=== PATIENT | female | born 1965 | race Asian ===

== ENCOUNTER 2017-03-13 22:08 | Emergency (ER) | payer OTHER ==
--- NOTE | 2017-03-14 00:11 | ED Physician Documentation ---
PD HPI HEAD INJURY - Stated complaint Stated Complaint: GLF/FACE INJURY - Chief complaint Chief Complaint: Trauma Hd/Nk - History obtained from History obtained from: Patient - History of Present Illness Mechanism of head injury: Fell Where head injury occurred: A house / apartment Timing - onset: Enter time (22:00), Today Pain level now: 4 Location of injury: Front Quality of pain: Pain Associated symptoms: No: LOC, AMS, Nausea / vomiting, Neck pain Contributing factors: No: Anticoagulated, Intoxicated Similar symptoms before: Has not had sx before Recently seen: Not recently seen - Additional information Additional information: patient tripped while walking down outdoor stairs at friend's house, 10PM tonight. C/O facial pain, and pain right hand and left knee. she is able to bear weight. Review of Systems Eyes: reports: Reviewed and negative Ears: reports: Reviewed and negative Nose: denies: Rhinorrhea / runny nose, Congestion, Epistaxis, Sinus pressure / pain Throat: denies: Dental pain / toothache Cardiac: reports: Reviewed and negative Respiratory: reports: Reviewed and negative Skin: reports: Abrasion (s) Musculoskeletal: reports: Joint pain, Joint swelling. denies: Neck pain, Back pain Neurologic: reports: Head injury. denies: Focal weakness, Numbness, Headache, LOC PD PAST MEDICAL HISTORY - Past Medical History Past Medical History: No - Present Medications Home Medications: Ambulatory Orders Medication Instructions Recorded Confirmed HYDROcod/ACETAM 5/325 [Imperial 5/325] 1 - 2 ea PO Q6H PRN #15 tablet 03/14/17 - Living Situation Living Arrangement: reports: At home - Social History Does the pt smoke?: No Smoking Status: Never smoker PD ED PE NORMAL - Vitals Vital signs reviewed: Yes - General General: Alert and oriented X 3, No acute distress, Well developed/nourished - HEENT HEENT: PERRL, EOMI, Moist mucous membranes, Pharynx benign, Dentition benign - Neck Neck: No bony TTP - Cardiac Cardiac: RRR, No murmur - Neuro Neuro: Alert and oriented X 3, house calls nurse 2-12 intact, No motor deficit, No sensory deficit, Normal speech PD ED PE EXPANDED - HEENT HEENT Visual: 1 - abrasion 2 - laceration 3 - bruising, swelling, tenderness 4 - abrasion, swelling, tenderness - Extremities Extremities: Tenderness (tenderness and swelling left knee; tenderness is directly over patella), Other (scattered superficial abrasions to dorsum of right hand with tenderness and swelling of 2nd MCP joint) Results - Vitals Vitals: Vital Signs - 24 hr 03/13/17 03/14/17 03/14/17 22:12 02:20 02:44 Temperature 36.6 C 36.7 C Heart Rate 89 79 78 Respiratory 20 19 16 Rate Blood Pressure 167/85 H 125/78 123/70 O2 Saturation 100 98 100 Oxygen O2 Source Room air - Rads (name of study) left knee xrays Radiology: Prelim report reviewed, See rad report right hand xrays Radiology: Prelim report reviewed, See rad report CT facial bones Radiology: Prelim report reviewed, See rad report Procedures - Laceration (location) Face Length in cm: 1 (from right nare to lip (right side of philtrum)) Wound type: Linear Neurovascular status: Sensory intact, Motor intact, Vascular intact Anesthesia: Lidocaine 1% Wound Preparation: Chlorhexadine Skin layer closure: Dermabond Other: Patient tolerated well, No complications, Neurovascular intact, Tetanus booster given Complexity: Simple PD MEDICAL DECISION MAKING - ED course Complexity details: reviewed results, re-evaluated patient, considered differential, d/w patient Departure - Departure Disposition: 01 Home, Self Care Clinical Impression: Facial abrasion, Multiple contusions, Left knee sprain, Nasal fracture Condition: Good Instructions: ED Fx Nasal Conf W X Ray, ED Sprain Knee, ED Laceration Facial Skin Glue Follow-Up: Cliff Stern MD [Primary Care Provider] - (3-4 days for wound check) Prescriptions: HYDROcod/ACETAM 5/325 [Imperial 5/325] 1 - 2 ea PO Q6H PRN #15 tablet PRN Reason: Pain Forms: Activity restrictions Discharge Date/Time: 03/14/17 02:44
[2017-03-14] MEDS ORDERED: TETANUS/DIPHTHERIA/PERTUSSIS 0.5 ML SYRINGE IM ONE ×2 (00:28→01:01)
[2017-03-14] MEDS ORDERED: HYDROcod/ACETAM 5/325 MG TABLET PO STA (00:29)
[2017-03-14] MEDS ORDERED: HYDROcod/ACETAM 5/325 MG TABLET ONE (01:00)
--- NOTE | 2017-03-14 01:24 | XRAY Preliminary Report ---
Exam: XR Knee 3 View LT IMPRESSION: Normal knee radiography. [facility] SITE ID: [id number]
--- NOTE | 2017-03-14 01:26 | XRAY Report ---
EXAM: LEFT KNEE RADIOGRAPHY EXAM DATE: 03/14/2017 01:12 AM. CLINICAL HISTORY: Fall, injury. COMPARISON: None. TECHNIQUE: 4 views. FINDINGS: Bones: Normal. No fractures or bone lesions. Joints: Normal. No effusion. No subluxations. Soft Tissues: Normal. No soft tissue swelling. IMPRESSION: Normal knee radiography. [facility] Referring Provider Line: [phone] SITE ID: [id number]
--- NOTE | 2017-03-14 01:29 | XRAY Preliminary Report ---
Exam: XR Hand 3 View RT IMPRESSION: No fracture or dislocation. [facility] SITE ID: [id number]
--- NOTE | 2017-03-14 01:32 | XRAY Report ---
EXAM: RIGHT HAND RADIOGRAPHY EXAM DATE: 03/14/2017 01:12 AM. CLINICAL HISTORY: Fall, injury. COMPARISON: None. TECHNIQUE: 3 views. FINDINGS: Bones: Normal. No fractures or bone lesions. Joints: Normal. No subluxations. Soft Tissues: Normal. No soft tissue swelling. IMPRESSION: No fracture or dislocation. [facility] Referring Provider Line: [phone] SITE ID: [id number]
--- NOTE | 2017-03-14 01:37 | CT Preliminary Report ---
Exam: CT Facial Bones W/O IMPRESSION: Right-sided nasal bone fractures. No other facial fracture is identified. [facility] SITE ID: [id number]
--- NOTE | 2017-03-14 01:39 | CT Report ---
EXAM: CT MAXILLOFACIAL WITHOUT CONTRAST EXAM DATE: 03/14/2017 01:12 AM. CLINICAL HISTORY: Fall, facial injury. COMPARISONS: None. TECHNIQUE: Thin-section axial images were acquired of the face without contrast. Post-processing: Cor onal and sagittal reformats. Other: None. In accordance with CT protocol optimization, one or more of the following dose reduction techniques w ere utilized for this exam: automated exposure control, adjustment of mA and/or KV based on patient s ize, or use of iterative reconstructive technique. FINDINGS: Bones: Mildly comminuted, mildly depressed right-sided nasal bone fractures. No fracture of the nasal septum. Depression by roughly 3 mm. Temporomandibular Joints: The temporomandibular joints are symmetric and normally located. Sinuses: Normal. No mucosal thickening or fluid levels. Other: Soft tissue swelling over the central forehead IMPRESSION: Right-sided nasal bone fractures. No other facial fracture is identified. [facility] Referring Provider Line: [phone] SITE ID: [id number]
[2017-03-14 02:45] VITALS: BP 123/70
== END 2017-03-14 02:44 | disposition home or self-care (01) ==
LOC: ED 22:08
DX: S02.2XXA Fracture of nasal bones, initial encounter for closed fracture (principal); S01.511A Laceration without foreign body of lip, initial encounter; S83.92XA Sprain of unspecified site of left knee, initial encounter; S60.511A Abrasion of right hand, initial encounter; W10.8XXA Fall (on) (from) other stairs and steps, initial encounter; Y92.038 Other place in apartment as the place of occurrence of the external cause
CPT/HCPCS: 12011; 70486; 90471; 99283

== ENCOUNTER 2017-07-29 09:07 | Day surgery (SDC) | payer OTHER ==
[2017-07-29 09:38] LABS: HCG UR QUAL NEGATIVE
[2017-07-29] MEDS ORDERED: LACTATED RINGERS 1,000 ML IV ONE (10:03)
[2017-07-29] MEDS ORDERED: MIDAZOLAM 2 MG/2 ML VIAL IVP ONE (10:18)
[2017-07-29] MEDS ORDERED: fentaNYL 100 MCG/2 ML VIAL IVP ONE (10:18)
--- NOTE | 2017-07-29 10:22 | HISTORY & PHYSICAL EXAMINATION ---
HPI - History of Present Illness HPI Comment/Other: Patient here for screening colonoscopy. Current Meds: VOLTAREN 1 % GEL (DICLOFENAC SODIUM) Apply 2-4 grams to affected areas four times daily as needed for pain CLOBETASOL PROPIONATE 0.05 % CREA (CLOBETASOL PROPIONATE) Apply three times daily for three weeks, stop for three weeks, them repeat as needed NEXIUM 20 MG CPDR (ESOMEPRAZOLE MAGNESIUM) Take one tablet by mouth daily, one- half hour before evening meal Allergies: NKDA Past Medical History: Reviewed history from 05/25/2017 and no changes required: Lateral epicondylitis GERD Thorasic Lumbar spondylosis OA Depression Past Surgical History: Reviewed history from 05/25/2017 and no changes required: SVO BTL Right elbow debride/repair Family History Summary: Reviewed history and no changes required: 05/25/2017 Mother (biol.) - Has Family History of Hypertension - Entered On: 05/25/2017 Father (biol.) - Has Family History of Heart Disease - Entered On: 05/25/2017 Social History: Reviewed history and no changes required: Previous Tobacco Use: Signed On - 05/25/2017 Smoked Tobacco Use: Never smoker Drug use: no Previous Alcohol Use: Signed On - 05/25/2017 Alcohol use: yes Physical Exam General: well developed, well nourished, in no acute distress Lungs: clear bilaterally to A & P Heart: regular rate and rhythm, S1, S2 without murmurs, rubs, gallops, or clicks Abdomen: bowel sounds positive; abdomen soft and non-tender without masses, organomegaly, or hernias noted Pulses: pulses normal in all 4 extremities Extremities: no clubbing, cyanosis, edema, or deformity noted with normal full range of motion of all joints Cervical Nodes: no significant adenopathy Psych: alert and cooperative; normal mood and affect; normal attention span and concentration Problems: Problems Added: 1) Dx of Depression (ZRQ08-L97.8) 2) Dx of GERD (UHP77-H58.9) (ICD-530.81) 3) Dx of Osteoarthritis (GIX34-M37.9) 4) Dx of Screening, colon cancer (WSV51-G42.11) (ICD-V76.51) Impression & Recommendations: Problem # 1: screening for colon cancer proceed with colonoscopy PMH/PSH - Past Medical History Cardiovascular: positive: None Respiratory: positive: None Endocrine/Autoimmune: positive: None GI: positive: GERD : positive: None HEENT: positive: None Psych: positive: None Musculoskeletal: positive: Osteoarthritis Derm: positive: None MRSA Hx?: No - Past Surgical History General: positive: Cholecystectomy, Colonoscopy Ortho: positive: Other /[employer]: positive: Tubal ligation Social & Family Hx - Social History Does the pt smoke?: No Smoking Status: Never smoker ETOH Use: Wine Meds/Allgy - Home Medications Home Medications: Ambulatory Orders Medication Instructions Recorded Confirmed Naproxen [Naprosyn] 500 mg PO DAILY 07/28/17 07/29/17 Omeprazole [PriLOSEC] 20 mg PO DAILY 07/29/17 07/29/17 - Allergies Allergies/Adverse Reactions: Allergies Allergy/AdvReac Type Severity Reaction Status Date / Time No Known Drug Allergies Allergy Verified 07/28/17 14:57 Exam - Vital Signs Vital Signs: Vital Signs x48h Temp Pulse Resp BP Pulse Ox 07/29/17 09:15 36.6 C 77 14 146/84 H 96 Results - Lab Results Other Lab Results: Lab Results x24hrs 07/29/17 Range/Units 09:25 Ur Specific [place] 1.010 (1.002-1.030) Urine HCG, Qual NEGATIVE
[2017-07-29 11:15] VITALS: BP 101/57
== END 2017-07-29 09:08 | disposition home or self-care (01) ==
LOC: SDS 09:07
PROVIDERS: ATTEND Surgery
PROC: 0DBL8ZX Excision of Transverse Colon, Via Natural or Artificial Opening Endoscopic, Diagnostic (ICD-10-PCS; principal; 2017-07-29 10:15)
DX: Z12.11 Encounter for screening for malignant neoplasm of colon (principal); D12.3 Benign neoplasm of transverse colon; K21.9 Gastro-esophageal reflux disease without esophagitis; F32.9 Major depressive disorder, single episode, unspecified
CPT/HCPCS: 45380; 81025; J7120

== ENCOUNTER 2022-12-01 14:41 | Outpatient (CLI) | payer OTHER ==
--- NOTE | 2022-12-01 20:16 | XRAY Report ---
PROCEDURE: Hand 3 View RT INDICATIONS: RIGHT HAND PAIN TECHNIQUE: 3 views of the hand(s) acquired. COMPARISON: Right hand radiographs 03/14/2017. FINDINGS: Bones: No fractures or dislocations. There is advanced interphalangeal joint space narrowing and os teophytosis. This is progressed since 2017. No suspicious bony lesions. Soft tissues: No suspicious soft tissue calcifications. IMPRESSION: Advanced osteoarthritis at the interphalangeal joints which is progressed compared to 2017. Reviewed by: Janusz Aquino MD on 12/01/2022 8:14 PM PST Approved by: Janusz Aquino MD on 12/01/2022 8:14 PM PST Station ID: [id number]
== END 2022-12-01 14:44 | disposition home or self-care (01) ==
LOC: DI.WOS 14:41
PROVIDERS: ATTEND Physician Assistant Surgical
DX: M19.041 Primary osteoarthritis, right hand (principal)